=== PATIENT | male | born 1930 | race Caucasian/White ===

== ENCOUNTER → 2020-05-20 | Outpatient (CLI) | payer OTHER ==
[~2020-05-20] MED LIST: ELIQUIS2.5 MG PO; ENTRESTO 97 MG1 EACH PO; FUROSEMIDE 20 M20 M1 PO; MEXILETINE 150150 MG PO; SYNTHROID25 MC1 PO; TOPROL XL100 MG PO
[2020-05-20 16:52] LABS: ABSOLUTE NEUTROPHILS 15.4 thou/uL (1.4-8.2); BASOPHILS 0.2 % (0.0-2.0); HEMATOCRIT 41.8 % (42.0-52.0); HEMOGLOBIN 13.7 gm/dL (14.0-18.0); LYMPHOCYTES 2.7 % (24.0-44.0); MCH 32.4 pg (26.0-34.0); MCHC 32.9 g/dL (28.0-37.0); MCV 98.5 fL (80.0-100.0); MONOCYTES 7.1 % (1.0-8.0); PLATELET COUNT 244 thou/uL (150-400); RBC 4.24 mil/uL (4.50-6.00); RDW 14.2 % (10.5-14.5); WBC 17.1 thou/uL (4.0-11.0)
[2020-05-20 17:09] LABS: CREATININE 3.4 mg/dL (0.7-1.3); POTASSIUM 5.1 mmol/L (3.5-5.1)
== END ==
LOC: NUC 10:41
PROVIDERS: ATTEND Nuclear Medicine Nuclear Cardiology
DX: M54.5 Low back pain (principal); S22.32XS Fracture of one rib, left side, sequela; S22.31XS Fracture of one rib, right side, sequela; X58.XXXS Exposure to other specified factors, sequela

== ENCOUNTER → 2020-05-20 | Outpatient (CLI) | payer OTHER ==
[~2020-05-20] VITALS: Ht 172.7 cm; Wt 72.6 kg
[~2020-05-20] MED LIST changes: +LOPERAMIDE 2 MG2 M1 PO; +PROTONIX40 M1 PO
[2020-05-20 17:08] VITALS: BP 108/48
== END | disposition home or self-care (01) ==
LOC: CATH 16:45
PROVIDERS: ATTEND Nuclear Medicine Nuclear Cardiology
DX: M80.08XA Age-related osteoporosis with current pathological fracture, vertebra(e), initial encounter for fracture (principal); M54.9 Dorsalgia, unspecified; I11.0 Hypertensive heart disease with heart failure; I50.9 Heart failure, unspecified; E78.5 Hyperlipidemia, unspecified; Z98.890 Other specified postprocedural states; Z79.899 Other long term (current) drug therapy; Z79.01 Long term (current) use of anticoagulants; Z95.0 Presence of cardiac pacemaker; Z95.1 Presence of aortocoronary bypass graft; Z86.73 Personal history of transient ischemic attack (TIA), and cerebral infarction without residual deficits

== ENCOUNTER 2020-05-23 19:24 | Inpatient (IN) | payer OTHER ==
[~2020-05-23] VITALS: Ht 170.2 cm; Wt 72.6 kg
--- NOTE | ~2020-05-23 | EMS ---
[facility] [address] [place] [address] EMS Patient Care Report Name: LANCE PETERS Room #: 170-11 ADM IN M.R.#: [id number] Admission: 05/23/20 Attend Phys: Kg Campos MD Discharge: Date of : [birth year] Report #: [id number] THIS REPORT FOR: //name// Report Transmitted: 05/23/2020 20:48 EMS Care Summary [facility] Incident [id number] @ 05/23/2020 18:35 Incident Location [id number] [place] [address] [place] [address] Patient LANCE PETERS Male, 89 Years 1930 Patient Address [id number] [place] [address] [place] [address] Patient History Pacemaker/AICD,Cardiac Condition - Other,Cardiac - Stent, Patient Allergies No known allergies, Patient Medications Synthroid, Melatonin, Furosemide, Metoprolol, Eliquis, Chief Complaint Weakness Disposition Transported No Lights/[place] Dispatch Reason Sick Person Transported To [facility] Narrative C- "I feel very weak today." H- Upon our arrival the pt stated the above. He reported that for the past two weeks the weakness has become worse. He advised that for the past two weeks all [facility] [address] [place] [address] EMS Patient Care Report Name: LANCE PETERS Room #: 170-11 ADM IN .Tim.#: [id number] Admission: 05/23/20 Attend Phys: Kg Campos MD Discharge: Date of : [birth year] Report #: [id number] of his bowel movements have been diarrhea. He advised that either Wednesday or Wednesday this week he had a "minor" back surgery for compressed vertebra. He advised that the surgery had no known complications. He reported that today he activated the 911 system because he was too weak for his to help him get to his feet. He advised that the weakness is worse moving from laying to sitting, or sitting to standing. He advised that he would like to be transported to [facility]. He stated that he doesn't think he has been able to keep enough liquids down. He reported that he hasn't vomited during the two weeks however when he tries to drink a normal amount of water he starts to feel nauseous. He denied any blood in his stools. He denied any pains. He denied trouble breathing. He denied any recent fevers or illnesses. He denied recent changes to his medications or the doses. History, medications and allergies are as charted. A- Upon our arrival we found the pt laying supine on a couch in the living room. The pt is alert to our arrival and does not appear to have any obvious life threats. Airway- patent and self maintained. Breathing- adequate tidal volume, equal rise and fall of chest, non-labored. Circulation- strong radial pulses, skin is warm dry and pink, negative body fluids. A&O to all questions. HEENT- nothing abnormal noted, MELINA at 4mm. Chest- nothing abnormal noted, CBBS. Abdomen- nothing abnormal noted. Upper extremities- nothing abnormal noted. Lower extremities- bilateral weakness. Vitals are as charted. Paced on the monitor. No acute changes noted on the 12-lead. R- Arrive on scene, general impression, pt contact, ABC's, LOC, CC, HPI/LALA, pt assessment. Obtain vitals. Place the pt on the campus monitor. Carry the pt from the couch to the stretcher via two person lift. Place the pt on the stretcher supine. Secure the pt with cot strapsX3. Move the pt from the home to the unit. Begin a non-emergent transport to [facility] T- Continue to observe and monitor the pt during transport to the hospital. Obtain a 12-lead. Attempt to gain venous access, attemptsX1 successfulX0. Give a radio report to the [facility] ED staff with no questions or orders given. Arrive at the hospital. Move the pt from the unit into the hospital ED to 11. Move the pt from the stretcher to the hospital bed. Give a verbal report to the [facility] ED RN and transfer pt care to that RN. Initial Vitals @18:59P: 75,SpO2: 98,PA Suspected: false @19:01P: 94,R: 14,BP: 99/65,Pain: 0/10,GCS: 15,SpO2: 98,Revised Trauma: 12, @19:15P: 68,R: 14,BP: 83/36,Pain: 0/10,GCS: 15,Glucose: 106,CO: 3,SpO2: 100,Revised Trauma: 11, @18:46P: 73,R: 14,BP: 125/69,Pain: 0/10,GCS: 15,Temp: 96.2F,SpO2: 97,Revised Trauma: 12, Assessments [facility] [address] [place] [address] EMS Patient Care Report Name: LANCE PETERS Room #: 170-11 ADM IN M.R.#: [id number] Admission: 05/23/20 Attend Phys: Kg Campos MD Discharge: Date of : [birth year] Report #: [id number] @18:46MENTAL:No Abnormalities,SKIN:HEENT:Eyes: Right Pupil: 4-mm,Eyes: Left Pupil: 4-mm,Head/Face: No Abnormalities,Neck/Airway: No Abnormalities,LUNG SOUNDS:General: No Abnormalities,ABDOMEN:General: No Abnormalities,PELVIS//GI:EXTREMITIES:Left Leg: Weakness,Right Leg: Weakness,Left Arm: No Abnormalities,Right Arm: No Abnormalities,PULSE:NEURO:No Abnormalities,@19:10MENTAL:No Abnormalities,SKIN:HEENT:Head/Face: No Abnormalities,Neck/Airway: No Abnormalities,LUNG SOUNDS:General: No Abnormalities,ABDOMEN:General: No Abnormalities,PELVIS//GI:EXTREMITIES:Left Leg: Weakness,Right Leg: Weakness,Left Arm: No Abnormalities,Right Arm: No Abnormalities,PULSE:NEURO:No Abnormalities, Impression Generalized Weakness Procedures @18:56StretcherResponse: Unchanged@19:10Saline Lock 0cc (20 ga) Site: Antecubital-LeftResponse: UnchangedFailed Timeline 18:32,Call Received 18:32,Psap Call 18:35,Dispatched 18:36,En Route 18:44,On Scene 18:45,At Patient 18:46,BP: 125/69 M,PULSE: 73,RR: 14 R,SPO2: 97 Ox,ETCO2: ,BG: ,PAIN: 0,GCS: 15, 18:56,Stretcher,Response: Unchanged 18:58,Depart Scene 18:59,BP: / M,PULSE: 75,RR: R,SPO2: 98 Ox,ETCO2: ,BG: ,PAIN: ,GCS: , 19:01,BP: 99/65 M,PULSE: 94,RR: 14 R,SPO2: 98 Ox,ETCO2: ,BG: ,PAIN: 0,GCS: 15, 19:10,Saline Lock 0cc 20 ga Site: Antecubital-Left,Response: UnchangedFailed, 19:15,BP: 83/36 M,PULSE: 68,RR: 14 R,SPO2: 100 Ox,ETCO2: ,B,PAIN: 0,GCS: 15, 19:19,At Destination 19:35,Call Closed Disclaimer v1.1 Copyright 2020 [employer] This EMS Care Summary contains data elements from the applicable legal record (which may be displayed differently). It is designed to provide pertinent information for the following purposes: continuity of care, clinical quality, and state data reporting. The complete legal record is available to ED staff and administrators of the receiving hospital in [employer]'s Patient Tracker. All data is provided "as is."
[2020-05-23 19:25] VITALS: BP 112/57
[2020-05-23 19:48] LABS: HEMATOCRIT 40.6 % (42.0-52.0); HEMOGLOBIN 13.3 gm/dL (14.0-18.0); MCH 32.3 pg (26.0-34.0); MCHC 32.9 g/dL (28.0-37.0); MCV 98.3 fL (80.0-100.0); PLATELET COUNT 171 thou/uL (150-400); RBC 4.13 mil/uL (4.50-6.00); RDW 14.2 % (10.5-14.5); WBC 12.9 thou/uL (4.0-11.0)
[2020-05-23 19:57] LABS: CALCIUM 8.8 mg/dL (8.5-10.1); CREATININE 3.1 mg/dL (0.7-1.3); POTASSIUM 5.7 mmol/L (3.5-5.1)
[2020-05-23 20:03] LABS: TOTAL BILIRUBIN 0.7 mg/dL (0.2-1.0); TOTAL PROTEIN 6.4 g/dL (6.4-8.2)
[2020-05-23 20:27] LABS: ANISOCYTOSIS 1+
[2020-05-23] MEDS ORDERED: TOPROL XL100 MG PO ×2 (20:40)
[2020-05-23] MEDS ORDERED: SYNTHROID25 MC1 PO ×2 (20:40)
[2020-05-23] MEDS ORDERED: ELIQUIS2.5 MG PO ×2 (20:41)
[2020-05-23] MEDS ORDERED: MEXILETINE 150150 MG PO ×2 (20:44)
[2020-05-23] MEDS ORDERED: FUROSEMIDE 20 M20 M1 PO ×2 (20:45)
[2020-05-23] MEDS ORDERED: ENTRESTO 97 MG1 EACH PO ×2 (20:46)
[2020-05-23 20:56] LABS: URINE BILIRUBIN NEGATIVE (Negative); URINE BLOOD 1+ (Negative); URINE CLARITY CLEAR; URINE COLOR YELLOW; URINE GLUCOSE-RANDOM* NEGATIVE (Negative); URINE KETONES NEGATIVE (Negative); URINE LEUKOCYTES-REFLEX NEGATIVE (Negative); URINE NITRITE-REFLEX NEGATIVE (Negative); URINE PROTEIN (DIPSTICK) 1+ (Negative)
[2020-05-23 21:17] LABS: BACTERIA-REFLEX 1-9 Few /HPF (None Seen); HYALINE CASTS 0-3 Few /LPF (None Seen); MUCUS 0-3 Light strn/LPF (None Seen); SQUAMOUS 4-10 Moderate /LPF (0-3); URINE RBC 3-10 Few /HPF (0-2); URINE WBC-REFLEX 0-5 Rare /HPF (0-5)
[2020-05-23 21:18] LABS: CELLULAR CASTS 0-3 Few /LPF (None Seen); CRYSTALS None Seen /LPF (None Seen)
[2020-05-23 21:37] VITALS: BP 104/72
--- NOTE | 2020-05-24 03:41 | NUR ---
NEW ADMISSION FROM THE ER FOR WEAKNESS,ARJUN, AND DIARRHEA. NO LOOSE STOOLS THIS SHIFT. PATIENT HAS A HERNANDEZ, CATH CARE DONE. PATIENT HAD BACK OPERATION AT WITH 3 BANDITS ON THE BACK, 3 BANDIT ARE C/D/I. PATIENT GIVEN WELCOME PACKAGE.FALL PRECAUTION IN PLACE. PATIENT IN BED ASLEEP AT THIS TIME BREATHING REGULAR AND UNLABOURED.
[2020-05-24 05:50] LABS: HEMATOCRIT 35.4 % (42.0-52.0); HEMOGLOBIN 11.8 gm/dL (14.0-18.0); MCH 32.5 pg (26.0-34.0); MCHC 33.5 g/dL (28.0-37.0); RBC 3.64 mil/uL (4.50-6.00); RDW 13.8 % (10.5-14.5)
[2020-05-24 06:02] LABS: CALCIUM 8.2 mg/dL (8.5-10.1); CREATININE 2.5 mg/dL (0.7-1.3)
[2020-05-24 06:31] LABS: POTASSIUM 3.8 mmol/L (3.5-5.1)
[2020-05-24 08:15] VITALS: BP 91/52
--- NOTE | 2020-05-24 09:15 | EKG ---
[facility] [place] [address] [place] [address] ELECTROCARDIOGRAM REPORT Name: LANCE PETERS Room #: 453- ADM IN M.R.#: [id number] Admission: 05/23/20 Attend Phys: Kg Campos MD Discharge: Date of : [birth year] Report #: [id number] THIS REPORT FOR: cc: Bryan Alonso MD, Christopher B. 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: : 1930 Requested By: Shyam Chen Order Number: [id number] MD: Jhony Rodriguez Measurements Intervals [place] Rate: 75 P: 0 UT: 167 QRS: 186 QRSD: 155 T: 83 QT: 478 QTc: 534 Interpretive Statements Ventricular-paced rhythm No further analysis attempted due to paced rhythm Compared to ECG 12/06/2004 07:39:22 No significant changes Electronically Signed On 05-24-2020 9:15:10 CDT by Jhony Rodriguez [email or web address] <ELECTRONICALLY SIGNED> By: Jhony Rodriguez MD, [facility] 05/24/20914 31 31 Jhony Rodriguez MD, [facility] /EPI
[2020-05-24 12:14] LABS: TSH 1.764 uIU/mL (0.358-3.740)
[2020-05-24 12:30] VITALS: BP 84/53
--- NOTE | 2020-05-24 13:36 | NUR ---
PT ADMITTED RELATED TO DIARRHEA, ARJUN,WEAKNESS. CM REVIEWED CHART AND SPOKE WITH CARE TEAM. CM CALLED AND SPOKE WITH PT THIS DAY. 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 HE INDICATED THAT HE RESIDES IN A TWO STORY HOUSE WITH HIS SPOUSE AND SON WHO IS IN HIS 20S. HE INDICATED 5 STEPS TO ENTER AND 10 STEPS INSIDE. 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 PT INDICATED THAT HE HAD A KYPHOPLASTY AT LAST WEEK. PT WAS RELUCTANT/UNWILLING TO DISCUSS DC PLANNING AT THIS TIME HE IS WAITING FOR INFECTION TO RESOLVE AND HIS FREQUENT BM'S TO DECREASE. CM MENTIONED HOME HEALTH VS. POST ACUTE CARE STAY UPON DC, AND PT INDICATED HE WASN'T INTERESTED IN DISCUSSING THAT AT THIS TIME AND HOPES TO NOT NEED ANYTHING ONE MEDICALLY STABLE TO DC HOME. CM TO FOLLOW INDICATED WITH DC PLANNING.
--- NOTE | 2020-05-24 17:52 | NUR ---
ASSUMED CARE OF PATIENT AT SHIFT CHANGE. ASSESSMENT CHARTED. MEDICATION GIVEN PER DEC. BP IS LOW BUT IS BASELINE FOR THIS PATIENT. AFEBRILE. DENIES PAIN BUT VOICES DISCOMFORT. PATIENT REPORTS NOT EATING IN 5 DAYS. CONTINUES TO HAVE SMALL LOOSE STOOLS. STOOL SAMPLE WAS SENT TO LAB AND PENDING RESULTS. LR RUNNING AT 100MLS/HR. HERNANDEZ INTACT PRODUCING DARK YELLOW URINE. FAMILY AT BEDSIDE. VOICES NO OTHER NEEDS AT THIS TIME. WILL CONTINUE TO MONITOR AND FOLLOW PLAN OF CARE
[2020-05-24 20:19] VITALS: BP 91/50
--- NOTE | 2020-05-25 04:19 | NUR ---
PATIENT AOX4 MAKES NEEDS KNOWN. PATIENT HAD SEVERAL LOOSE STOOLS THIS SHIFT.FALL PRECAUTION IN PLACE. PATIENT IN BED ASLEEP AT THIS TIME BREATHING REGULAR AND UNLABOURED.
[2020-05-25 06:32] LABS: ALBUMIN 1.7 g/dL (3.4-5.0); CALCIUM 7.7 mg/dL (8.5-10.1); CREATININE 1.8 mg/dL (0.7-1.3); MAGNESIUM 1.5 mg/dL (1.8-2.4); PHOSPHORUS 2.9 mg/dL (2.5-4.9); POTASSIUM 3.9 mmol/L (3.5-5.1); TOTAL BILIRUBIN 0.6 mg/dL (0.2-1.0); TOTAL PROTEIN 5.1 g/dL (6.4-8.2)
[2020-05-25 08:04] VITALS: BP 107/58
[2020-05-25 14:56] VITALS: BP 109/59
[2020-05-25 20:02] VITALS: BP 108/46
--- NOTE | 2020-05-25 20:24 | NUR ---
Assumed pt care this am, loose bm resolved later in the pm, c- diff results are negative. FC in place draining light yellow urine. Diet and medication are tolerated well, though meals are not comsumed at 100%. Fall precautions in place, shari - care done. was at the bedside in the pm, complained that nighst shift had not attended to the pt in the evening and was sitting in his feces for several hours. Pt is very hard of hearing, poc followed with no signs or verbalizations of distress noted. FAll precautions in pace and scd's on. Endorsed to the night nurse.
[2020-05-26 07:36] VITALS: BP 112/68
--- NOTE | 2020-05-26 07:40 | NUR ---
ASSUMED PT CARE AROUND 1930. AXOX4. [place]. NO S/S ACUTE DISTRESS NOTED OR REPORTED AT THIS TIME. CARE TRANSFERRED TO AM RN AT THIS TIME.
[2020-05-26 08:23] LABS: ALBUMIN 1.7 g/dL (3.4-5.0); CALCIUM 7.6 mg/dL (8.5-10.1); CREATININE 1.4 mg/dL (0.7-1.3); MAGNESIUM 1.4 mg/dL (1.8-2.4); PHOSPHORUS 2.6 mg/dL (2.5-4.9); POTASSIUM 3.9 mmol/L (3.5-5.1); TOTAL BILIRUBIN 0.6 mg/dL (0.2-1.0)
[2020-05-26 15:53] VITALS: BP 111/66
[2020-05-26 19:49] VITALS: BP 113/62
--- NOTE | 2020-05-26 21:23 | NUR ---
Assumed pt care this am, VS stable. FC drainig light yelow urine, Vs stable. hand one lbm this am. POC followed with with no signs or verbalizatiosn of distress noted. LBM controlled with medications, at the bedside, requested to pantoprazole in the pm one time order given by MD. endorsed to the night nurse.
--- NOTE | 2020-05-27 04:12 | NUR ---
patient aox3 makes needs known. patient is incontinent of bowel pericare and barrier cream applied as needed. cath care done.fall precaution in place. patient in bed asleep at this time breathing regular and unlaboured.
[2020-05-27 06:15] LABS: ALBUMIN 1.7 g/dL (3.4-5.0); CALCIUM 7.9 mg/dL (8.5-10.1); CREATININE 1.3 mg/dL (0.7-1.3); MAGNESIUM 1.4 mg/dL (1.8-2.4); POTASSIUM 4.2 mmol/L (3.5-5.1); TOTAL BILIRUBIN 0.5 mg/dL (0.2-1.0)
--- NOTE | 2020-05-27 10:29 | NUR ---
CM CALLED AND SPOKE WITH PT AND SPOUSE THIS AM. THEY INDICATED THAT THEY WERE INTERESTED IN REFERRAL BEING SENT TO [facility] FOR REVIEW FOR POSSIBLE ADMISSION. REFERRAL TO BE SENT. CM TO FOLLOW INDICATED WITH DC PLANNING.
[2020-05-27 15:08] VITALS: BP 116/58
--- NOTE | 2020-05-27 16:50 | NUR ---
FAXED REFERRAL TO [facility] RECEIVED CONFIRMATION LEFT MSG WITH ANASTASIYA IN ADM SHE RECEIVED REFERRAL AND WILL REVIEW. DP TO FOLLOW.
[2020-05-27 19:20] VITALS: BP 114/62
--- NOTE | 2020-05-27 20:45 | NUR ---
Assumed patient care at 0715. Vital signs stable, LSCTA, ABD soft and non-tender, BS x's 4, skin is clean, warm, dry and intact; he denies pain. Patient continues with a Vega Catheter due to retention; he straight caths himself at home. He continues to have loose stools and heartburn. He was given Immodium x's 1 in am. Received a one time order for Maalox from GI Team for continued heartburn; he refused it earlier. Patient's here this evening. She cut up his Dinner and fed him. Patient's was upset because her has not been getting fed. This nurse informed her that "this information was not passed on to me." became angry, mentioned "a Law suit", as she also informed this nurse that "he layed in diarrhea for two hours last night!" Patient is alert and oriented x's 4. He did not mention that he was unable to feed himself to this nurse. Report given to on-coming nurse.
--- NOTE | 2020-05-28 03:30 | NUR ---
ASSUMED PT CARE AT 1930. PT IS A&OX4. VSS. PT HAS A HERNANDEZ. ADMINISTERED MEDS. FLUIDS RUNNING. PT PULLED OUT HIS IV JUST BEFORE MIDNIGHT. PLACED A 22 G IN HIS RIGHT FOREARM AT 0000 05/28/20 PT DID NOT WANT TO BE WAKEN UP DURING THE NIGHT. PT IS SLEEPING IN HIS ROOM. WILL CONTINUE TO MONITOR.
[2020-05-28 08:01] VITALS: BP 107/65
--- NOTE | 2020-05-28 12:43 | NUR ---
Received awake on bed. Due medications given as prescribed, able to swallow meds w/o difficulty. On room air. A+Ox4, [place], no hearing aid present. On MS, not on telemetry, no complaints of chest pain, crushing sensation and heaviness. On regular diet- pt with poor appetite; no nausea, no vomiting and no abdominal pain noted; assisted and encouraged in eating and drinking- offered pt for admissions director consult for his food preference, but pt refused. With weiss in place- output measured and recorded accordingly; may be incontinent of bowel- checked frequently and changed as needed- with orders from Dr Campos this AM to remove weiss, pt requested to keep weiss in for now since he self caths at home 3-4x a day- Dr Campos informed and agreed to keep it in for now. Pt offered snack and informed choices available in the galley- will inform staff if he wants any. Pt's called this AM telling that pt was not fed for breakfast, [employer] immigration case manager talked to pt's and addressed her concerns and complaints. Pt asked re: pain, refused pain meds; informed her that pain meds available if he needs it. Pt seen by Physical therapist today, pt able to walk in the hallway and sit out on the chair. To continue monitoring patient.
[2020-05-28 15:20] VITALS: BP 106/57
--- NOTE | 2020-05-28 15:20 | NUR ---
[facility] INDICATED THAT THEY CAN ACCEPT AND HAVE SUBMITTED FOR INSURANCE AUTH. COVID TEST PENDING. CM NOTIFIED PT AND SPOUSE OF THE ABOVE. AWAITING INSURANCE AUTH.
[2020-05-28 19:48] VITALS: BP 111/53
--- NOTE | 2020-05-29 03:07 | NUR ---
ASSUMED PT CARE APPROX 1914. PT IS A&OX4. PT HAS A RIGHT AC FLUIDS RUNNING AT 100. PT IS A Q2 TURN. PT HAS HERNANDEZ. PT HAD A DARK BROWN RUNNY BM AT THE BEGINING OF THE SHIFT. PT ASKED TO NOT BE WOKEN AT NIGHT. PT TAKES MEDS WHOLE. PT HAS BRUISES. WILL CONTINUE TO MONITOR.
[2020-05-29 07:15] VITALS: BP 121/59
[2020-05-29 08:51] LABS: HEMATOCRIT 32.6 % (42.0-52.0); HEMOGLOBIN 11.3 gm/dL (14.0-18.0); MCH 33.5 pg (26.0-34.0); MCHC 34.7 g/dL (28.0-37.0); MCV 96.4 fL (80.0-100.0); RBC 3.39 mil/uL (4.50-6.00); RDW 14.2 % (10.5-14.5); WBC 7.6 thou/uL (4.0-11.0)
[2020-05-29 09:00] LABS: CALCIUM 7.6 mg/dL (8.5-10.1); CREATININE 1.2 mg/dL (0.7-1.3); MAGNESIUM 1.6 mg/dL (1.8-2.4); POTASSIUM 4.1 mmol/L (3.5-5.1)
--- NOTE | 2020-05-29 10:12 | NUR ---
Received awake on bed. Due medications given as prescribed, able to swallow meds w/o difficulty. On room air. Vital signs stable. On MS, not on telemtry; no complaints of chest pain, crushing sensation and heaviness, Hx of Afib. 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 Assisted in ADLs. On regular diet- assisted and encouraged in eating and drinking; no complaints of nausea, vomiting and abdominal pain noted. With weiss in place- output measured and recorded accordingly; with episodes of incontinence with bowel movement- charted; checked frequently and changed as needed; as per pt he self catheterizes at home 3x/day. With LR at 100cc/hr, infusing well at R arm. Falls bundle in place. Possible discharge today, still a/w insurance authorization- CM aware. To continue monitoring patient.
--- NOTE | 2020-05-29 13:52 | NUR ---
FAXED CLINICAL UPDATE TO [facility] RECEIVED CONFIRMATION AND LEFT MSG WITH ANASTASIYA IN ADM. COVID RESULT INCLUDED WITH UPDATE.
[2020-05-29 16:00] VITALS: BP 134/62
[2020-05-29] MEDS ORDERED: PROTONIX40 M1 PO ×2 (16:00)
[2020-05-29] MEDS ORDERED: LOPERAMIDE 2 MG2 M1 PO ×2 (16:01)
--- NOTE | 2020-05-29 16:42 | NUR ---
[facility] GOT AUTH TO ACCEPT PT THIS DAY. CM NOTIFIED CARE TEAM ORDERS WERE ENTERED. ORDERS FAXED TO FACILITY. CHART COPY ORDERED. REPORT CALLED TO FACILITY. PT AND SPOUSE AWARE AND AGREEABLE. TRANSPORT ARRANGED FOR 1800. NO OTHER CM INTERVENTION INDICATED. CASE CLOSED.
[2020-05-30 18:36] LABS: HAV IgM AB (ANTI-HAV IgM) NEGATIVE
[2020-05-30 18:37] LABS: HEPATITIS B SURFACE AG Negative; HEPATITIS C VIRUS AB <0.1
== END 2020-05-29 19:30 | DRG 682 ==
LOC: ER 19:24 → EROBS 20:43 → 4W 20:43
PROVIDERS: Emergency Medicine; Nurse Practitioner Family; Specialist; ADMIT Internal Medicine; ATTEND Internal Medicine
DX: N17.0 Acute kidney failure with tubular necrosis (principal); E43 Unspecified severe protein-calorie malnutrition; A09 Infectious gastroenteritis and colitis, unspecified; I12.9 Hypertensive chronic kidney disease with stage 1 through stage 4 chronic kidney disease, or unspecified chronic kidney disease; D64.9 Anemia, unspecified; K21.9 Gastro-esophageal reflux disease without esophagitis; K59.00 Constipation, unspecified; M62.84 Sarcopenia; M54.5 Low back pain; N40.0 Benign prostatic hyperplasia without lower urinary tract symptoms; E87.5 Hyperkalemia; E83.42 Hypomagnesemia; N18.9 Chronic kidney disease, unspecified; R74.0 Nonspecific elevation of levels of transaminase and lactic acid dehydrogenase [LDH]; E86.0 Dehydration; E03.9 Hypothyroidism, unspecified; E78.5 Hyperlipidemia, unspecified; G62.9 Polyneuropathy, unspecified; Z20.828 Contact with and (suspected) exposure to other viral communicable diseases; I48.91 Unspecified atrial fibrillation; Z95.1 Presence of aortocoronary bypass graft; Z95.810 Presence of automatic (implantable) cardiac defibrillator; Z86.711 Personal history of pulmonary embolism; Z79.01 Long term (current) use of anticoagulants; Z79.899 Other long term (current) drug therapy; Z68.25 Body mass index [BMI] 25.0-25.9, adult; Z85.46 Personal history of malignant neoplasm of prostate; Z92.3 Personal history of irradiation; Z86.010 Personal history of colon polyps; Z85.820 Personal history of malignant melanoma of skin
CPT/HCPCS: 10040